=== PATIENT | female | born 1930 | race Caucasian/White ===

== ENCOUNTER → 2017-11-14 | Outpatient (CLI) | payer MEDICARE ==
--- NOTE | 2017-11-15 09:41 | RAD ---
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 Marginal osteophytes are also seen patellofemoral and small osteophyte along the tibia. Small suprapatellar joint effusion No fracture or focal osteochondral lesion. Normal mineralization Electronically signed by: Osman Romeo MD 11/15/2017 9:40 AM [facility]
--- NOTE | 2017-11-15 09:43 | RAD ---
EXAM DESCRIPTION: Pelvis, single view CLINICAL HISTORY: HIP PAIN FINDINGS/ IMPRESSION: No fracture of the pelvis or proximal femora No focal osteochondral lesion of the femoral head. Mild joint space narrowing. 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 No lytic or blastic bony lesion Electronically signed by: Osman Romeo MD 11/15/2017 9:42 AM [facility]
== END | disposition home or self-care (01) ==
LOC: RAD 08:45
PROVIDERS: ATTEND Orthopaedic Surgery
DX: M17.12 Unilateral primary osteoarthritis, left knee (principal); M25.552 Pain in left hip